=== PATIENT | male | born 1970 | race American Indian/Alaskan Native ===

== ENCOUNTER 2019-10-17 19:28 | Inpatient (IN) | payer OTHER ==
--- NOTE | 2019-10-17 21:04 | Event Note ---
ED Screening Note Date of service: 10/17/19 Time: 21:00 ED Screening Note: This is a 49 y.o. M. that presents to the ER with LLQ pain for 2 weeks. Reports vomiting once. PMH of DM2, HTN, and neuropathy States ran out of medication 3 months ago and requesting refills. This initial assessment/diagnostic orders/clinical plan/treatment(s) is/are subject to change based on patients health status, clinical progression and re- assessment by fellow clinical providers in the ED. Further treatment and workup at subsequent clinical providers discretion. Patient/guardian urged not to elope from the ED as their condition may be serious if not clinically assessed and managed. Initial orders include: Labs
[2019-10-17 21:47] LABS: Alanine Aminotransferase 27 units/L (7-56); Albumin 4.6 g/dL (3.9-5); BUN/Creatinine Ratio 11; Blood Urea Nitrogen 12 mg/dL (9-20); Calcium 9.5 mg/dL (8.4-10.2); Hemolysis Index 7
[2019-10-17 21:48] LABS: Basophils % (Auto) 0.2 % (0.0-1.8); Eosinophils # (Auto) 0.1 K/mm3 (0.0-0.4); Eosinophils % (Auto) 2.1 % (0.0-4.3); Hematocrit 40.9 % (35.5-45.6); Hemoglobin 13.4 gm/dl (11.8-15.2); Lymphocytes # (Auto) 1.2 K/mm3 (1.2-5.4); Mean Corpuscular HGB Conc 33 % (32-34); Mean Corpuscular Volume 91 fl (84-94); Monocytes # (Auto) 0.3 K/mm3 (0.0-0.8); Monocytes % (Auto) 7.1 % (0.0-7.3); Platelet Count 200 K/mm3 (140-440)
[2019-10-17 22:25] LABS: Bilirubin,Urine NEG (Negative); Blood,Urine NEG (Negative); Color,Urine Colorless (Yellow); Protein,Urine <15 mg/dL mg/dL (Negative); Urobilinogen,Urine < 2.0 mg/dL (<2.0); WBC,Urine < 1.0 /HPF (0.0-6.0)
[2019-10-17] MEDS ORDERED: INSULIN REGULAR, HUMAN 100 UNITS/1 ML IV ONE (22:30)
[2019-10-17] MEDS ORDERED: SODIUM CHLORIDE 0.9% 1000 ML 1,000 ML IV ONE (22:31)
--- NOTE | 2019-10-17 23:52 | Cat Scan Report ---
CT of the abdomen and pelvis without contrast INDICATION: Left lower quadrant pain COMPARISON: None FINDINGS: Lung bases are clear. The liver, spleen, adrenal glands and kidneys show no abnormalities. No definite gallbladder or biliary tree abnormality. No fluid or adenopathy in the upper abdomen. The re is a 2.4 cm partially calcified mass in the tail the pancreas. CT of the pelvis shows normal appendix. No ureteral stones are seen. No stone fragments seen in the b ladder. Prostate is not significantly enlarged. There is no diverticulosis or diverticulitis. No sign ificant skeletal lesion. IMPRESSION: Partially calcified pancreatic tail mass. Otherwise negative study. Automated exposure control was utilized to diminish radiation dose. Signer Name: Mau Palmer MD Signed: 10/17/2019 11:47 PM Workstation Name: [id number]
--- NOTE | 2019-10-18 00:09 | Emergency Department Report ---
ED General Adult HPI - General Chief complaint: Abdominal Pain Stated complaint: OUT OF MEDS Time Seen by Provider: 10/17/19 20:59 Source: patient Mode of arrival: Ambulatory Limitations: No Limitations - History of Present Illness Initial comments: Patient reports non-compliant with DM medications for past 3 months. Reports left lower quadrant abdominal pain for past 2 weeks intermittent. - Related Data Allergies Allergy/AdvReac Type Severity Reaction Status Date / Time No Known Allergies Allergy Verified 10/17/19 19:41 ED Review of Systems ROS: Stated complaint: OUT OF MEDS Other details as noted in HPI Other: GENERAL: No weight change, fatigue, fever, chills, or night sweats SKIN: No changes in skin or hair, no itching, no rashes, no jaundice HEAD: No trauma EYES: No blurriness, tearing, itching, acute visual loss, conjunctival discoloration, or scleral icterus EARS: No hearing loss, tinnitus, vertigo, or earache NOSE: No rhinorrhea, stuffiness, sneezing, itching, or epistaxis MOUTH: No bleeding gums, hoarseness, sore throat, or swelling CARDIAC: No new murmur, chest pain, palpitations, dyspnea on exertion, orthop zachery, PND, or edema RESPIRATORY: No shortness of breath, wheeze, cough, sputum production, hemoptysis GI: Abdominal pain. No nausea, vomiting, dysphagia, diarrhea, constipation, hematemesis, melena, hematochezia URINARY: No frequency, urgency, polyuria, dysuria, hematuria, or incontinence MUSCULOSKELETAL: No muscle weakness, joint stiffness, decrease in range of motion, redness, swelling NEUROLOGIC: No headache, syncope, loss of sensation, numbness, tingling, tremors, weakness, paralysis, seizures HEMATOLOGIC: No anemia, easy bruising, bleeding, petechiae, or purpura ENDOCRINE: Polyuria, polydipsia or, polyphagia. No hot or cold intolerance, sweating, no thyroid problems PSYCHIATRIC: No change in mood, no anxiety, no depression ED Past Medical Hx - Past Medical History Previous Medical History?: Yes Hx Hypertension: Yes Hx Diabetes: Yes Additional medical history: Neuropathy - Surgical History Past Surgical History?: Yes Additional Surgical History: C6-C7 hardware - Social History Smoking Status: Never Smoker Substance Use Type: None ED Physical Exam - General Limitations: No Limitations - Other Other exam information: GENERAL: Patient in no acute distress HEAD: Normocephalic, atraumatic EYES: PERRLA, EOM intact, no scleral icterus, no conjunctival hemorrhage, visual patton and acuity wnl NOSE: No tenderness, discharge, sinus tenderness MOUTH: Dry mucous membranes. No erythema, bleeding, exudate HEART: Regular rate and rhythm, no murmur, S1-S2 are auscultated, no edema, pulses are symmetric LUNGS: No respiratory distress. Bilateral breath sounds, No tachypnea, No retractions, No wheezing, rales, rhonchi ABDOMEN: Normal bowel sounds, abdomen soft, no tenderness, no rebound, no guarding, no distention, no masses, no CVA tenderness MUSCULOSKELETAL: Normal joint range of motion, no redness, no swelling, no tenderness NEUROLOGIC: GCS 15, Alert and Oriented x3, Cranial nerves intact, normal sen sation, normal strength, no cerebellar deficit, NIHSS 0 SKIN: Skin is warm and dry, no wounds, no rashes ED Course Vital Signs 10/17/19 10/17/19 10/17/19 20:21 22:31 22:33 Temperature 97.2 F L Pulse Rate 99 H 74 Respiratory 20 19 18 Rate Blood Pressure 142/92 129/98 O2 Sat by Pulse 96 100 100 Oximetry ED Medical Decision Making - Lab Data Result diagrams: 10/17/19 21:15 10/17/19 21:15 Laboratory Results - last 24 hr 10/17/19 10/17/19 10/17/19 21:15 21:15 22:06 WBC 3.8 L RBC 4.50 Hgb 13.4 Hct 40.9 MCV 91 MCH 30 MCHC 33 RDW 13.0 L Plt Count 200 Lymph % (Auto) 33.0 [place] % (Auto) 7.1 Eos % (Auto) 2.1 Baso % (Auto) 0.2 Lymph # 1.2 [place] # 0.3 Eos # 0.1 Baso # 0.0 Seg Neutrophils % 57.6 Seg Neutrophils # 2.2 Sodium 124 L Potassium 4.5 Chloride 87.8 L Carbon Dioxide 23 Anion Gap 18 BUN 12 Creatinine 1.1 Estimated GFR > 60 BUN/Creatinine Ratio 11 Glucose 894 H* POC Glucose Calcium 9.5 Total Bilirubin 0.60 AST 21 ALT 27 Alkaline Phosphatase 109 Total Protein 7.3 Albumin 4.6 Albumin/Globulin Ratio 1.7 Lipase 31 Urine Color Colorless Urine Turbidity Clear Urine pH 7.0 Ur Specific [place] 1.027 Urine Protein <15 mg/dl Urine Glucose (UA) >=500 Urine Ketones Tr Urine Blood Neg Urine Nitrite Neg Urine Bilirubin Neg Urine Urobilinogen < 2.0 Ur Leukocyte Esterase Neg Urine WBC (Auto) < 1.0 Urine RBC (Auto) 1.0 10/18/19 00:18 WBC RBC Hgb Hct MCV MCH MCHC RDW Plt Count Lymph % (Auto) [place] % (Auto) Eos % (Auto) Baso % (Auto) Lymph # [place] # Eos # Baso # Seg Neutrophils % Seg Neutrophils # Sodium Potassium Chloride Carbon Dioxide Anion Gap BUN Creatinine Estimated GFR BUN/Creatinine Ratio Glucose POC Glucose 218 H Calcium Total Bilirubin AST ALT Alkaline Phosphatase Total Protein Albumin Albumin/Globulin Ratio Lipase Urine Color Urine Turbidity Urine pH Ur Specific [place] Urine Protein Urine Glucose (UA) Urine Ketones Urine Blood Urine Nitrite Urine Bilirubin Urine Urobilinogen Ur Leukocyte Esterase Urine WBC (Auto) Urine RBC (Auto) - Medical Decision Making Patient comfortable. Updated with results. Plan admit for further evaluation. Hospitalist updated and accepts admission. Critical care attestation.: If time is entered above; I have spent that time in minutes in the direct care of this critically ill patient, excluding procedure time. ED Disposition Clinical Impression: Hyperglycemic hyperosmolar nonketotic coma, Noncompliance with medication regimen, Hyponatremia Disposition: OP ADMIT IP TO THIS HOSP Is pt being admited?: Yes Condition: Stable Instructions: Diabetes Mellitus Type 2 in Adults (ED) Referrals: USMAN MAYEN MD [Primary Care Provider] - 3-5 Days Time of Disposition: 00:08
[2019-10-18] MEDS ORDERED: DEXTROSE 50% IN WATER (25GM) 50 ML SYRINGE IV PRN ×2 (00:52→12:42)
[2019-10-18] MEDS ORDERED: POTASSIUM CHLORIDE 10 MEQ 10 MEQ/100 ML BAG IV PRN ×2 (01:00)
[2019-10-18] MEDS ORDERED: D5W/0.45% NACL/KCL 20 MEQ 20 MEQ/1,000 ML BAG IV SCH (01:00)
[2019-10-18] MEDS ORDERED: INSULIN REGULAR, HUMAN 100 UNITS in SODIUM CHLORIDE 0.9% 99 ML IV SCH (01:00)
[2019-10-18 02:08] LABS: BUN/Creatinine Ratio 11; Blood Urea Nitrogen 10 mg/dL (9-20); Calcium 9.6 mg/dL (8.4-10.2); Hemolysis Index 17
[2019-10-18] MEDS: SODIUM CHLORIDE 0.9% 1000 ML 1,000 ML IV SCH ×2 (02:59→10:12)
--- NOTE | 2019-10-18 03:15 | History and Physical Report ---
History of Present Illness Date of examination: 10/18/19 Date of admission: 10/18/19 Chief complaint: Lower abdominal pain History of present illness: 49-year-old -Maur[place] male with known history of hypertension and diabetes mellitus presenting to the emergency room today complaining of left lower quadrant abdominal pain for the past few weeks. He denies any fever and no chills, no chest pain or shortness of breath, no hematuria or dysuria. Upon evaluation in the emergency room CT of the abdomen and pelvis did not show any significant findings. However patient was found to be hyperglycemic with blood sugar in the 800s. Patient admits that he has knots been quite compliant with his medications for the past few months as he could not get a refill. He was given IV fluid and also subcutaneous insulin in the emergency room. Past History Past Medical History: diabetes, hypertension Past Surgical History: Other (Titanium helder ON C6 AND C7) Social history: alcohol abuse (Drinks beer almost on a daily basis) Family history: diabetes, hypertension Medications and Allergies Allergies Allergy/AdvReac Type Severity Reaction Status Date / Time No Known Allergies Allergy Verified 10/17/19 19:41 Active Meds: Active Medications Dextrose (D50w (25gm) Syringe) 0 ml IV Q30MIN PRN; Protocol PRN Reason: Hypoglycemia Insulin Human Regular 100 (units/ Sodium Chloride) 100 mls @ 1 mls/hr IV TITR KENNETH; Protocol Last Admin: 10/18/19 02:57 Dose: 4 units/hr, 4 mls/hr Documented by: Potassium Chloride/Dextrose/Sod Cl (D5w/0.45% Nacl/Kcl 20 Meq) 20 meq in 1,000 mls @ 125 mls/hr IV DIRECT KENNETH Sodium Chloride (Nacl 0.9% 1000 Ml) 1,000 mls @ 150 mls/hr IV DIRECT KENNETH Last Admin: 10/18/19 02:59 Dose: 150 mls/hr Documented by: Potassium Chloride (Kcl 10meq/100ml) 10 meq in 100 mls @ 100 mls/hr IV Q1H PRN PRN Reason: SEE INSULIN DRIP PARAMETERS Potassium Chloride (Kcl 10meq/100ml) 10 meq in 100 mls @ 100 mls/hr IV Q1H PRN PRN Reason: SEE INSULIN DRIP PARAMETERS Sodium Chloride (Sodium Chloride Flush Syringe 10 Ml) 10 ml IV BID KENNETH Sodium Chloride (Sodium Chloride Flush Syringe 10 Ml) 10 ml IV PRN PRN PRN Reason: LINE FLUSH Review of Systems Gastrointestinal: abdominal pain (Lower abdominal pain), other Exam - Constitutional Vitals: Temp Pulse Resp BP Pulse Ox 97.2 F L 81 11 L 127/86 100 10/17/19 20:21 10/18/19 03:00 10/18/19 03:00 10/18/19 03:00 10/17/19 22:33 General appearance: Present: no acute distress, well-nourished - EENT Eyes: Present: PERRL, EOM intact ENT: hearing intact, clear oral mucosa, dentition normal - Neck Neck: Present: supple, normal ROM - Respiratory Respiratory effort: normal Respiratory: bilateral: CTA - Cardiovascular Rhythm: regular Heart Sounds: Present: S1 & S2 - Extremities Extremities: pulses symmetrical, No edema, Full ROM Peripheral Pulses: within normal limits - Abdominal General gastrointestinal: Present: soft, non-tender, non-distended, normal bowel sounds - Integumentary Integumentary: Present: clear, warm, dry - Musculoskeletal Musculoskeletal: strength equal bilaterally - Psychiatric Psychiatric: appropriate mood/affect, intact judgment & insight, cooperative - Neurologic Neurologic: CNII-XII intact, moves all extremities Results - Labs CBC & Chem 7: 10/17/19 21:15 10/18/19 03:36 Labs: Abnormal lab results 10/17/19 10/17/19 10/18/19 Range/Units 21:15 21:15 00:18 WBC 3.8 L (4.5-11.0) K/mm3 RDW 13.0 L (13.2-15.2) % Sodium 124 L (137-145) mmol/L Chloride 87.8 L (98-107) mmol/L Glucose 894 H* (75-100) mg/dL POC Glucose 218 H (70-105) Hemoglobin A1c (4-6) % 10/18/19 10/18/19 Range/Units 01:11 01:11 WBC (4.5-11.0) K/mm3 RDW (13.2-15.2) % Sodium (137-145) mmol/L Chloride (98-107) mmol/L Glucose 166 H (75-100) mg/dL POC Glucose (70-105) Hemoglobin A1c 14.1 H (4-6) % Assessment and Plan - Patient Problems (1) Hyperglycemic hyperosmolar nonketotic coma Current Visit: Yes Status: Acute Plan to address problem: Patient has been placed on insulin drip and also on IV fluid. We will monitor Accu-Cheks closely. Compliance with medication has been encouraged. Patient will also benefit from diabetic education prior to discharge. He has hemoglobin A1c of 14.1 (2) Hyponatremia Current Visit: Yes Status: Acute Plan to address problem: Probably secondary to the hyperglycemia. Will monitor chemistry. (3) Noncompliance with medication regimen Current Visit: Yes Status: Acute Plan to address problem: Compliance encouraged. (4) DVT prophylaxis Current Visit: Yes Status: Acute Plan to address problem: Patient is placed on sequential compression device. (5) Full code status Current Visit: Yes Status: Acute
[2019-10-18 04:24] LABS: BUN/Creatinine Ratio 12; Blood Urea Nitrogen 11 mg/dL (9-20); Calcium 9.4 mg/dL (8.4-10.2); Hemolysis Index 27
[2019-10-18] MEDS ORDERED: INSULIN REGULAR, HUMAN 100 UNITS/1 ML SUB-Q ONE (13:00)
--- NOTE | 2019-10-18 13:13 | Event Note ---
Date: 10/18/19 Patient seen and examined clinically improving normally follows at [facility] but has been out of his medication for a few days has not been fully compliant due to cost of Levemir. Agreeable to try Novolin 70/30 considering cheaper cost. Will give additional 2 L bolus of fluid as blood sugar crept back up to >400. Anticipate discharge in a.m.
[2019-10-18] MEDS: GABAPENTIN 100 MG CAP PO SCH ×2 (13:35→21:40)
[2019-10-18] MEDS ORDERED: SODIUM CHLORIDE 0.9% 1000 ML 2,000 ML IV ONE (13:44)
[2019-10-18] MEDS: INSULIN LISPRO 100 UNIT/ML SUB-Q SCH ×2 (18:06→21:38)
[2019-10-18] MEDS: INSULIN NPH/REGULAR 70/30 INJ SUB-Q SCH (18:06)
[2019-10-18] MEDS ORDERED: INSULIN GLARGINE 100 UNITS/ML SUB-Q SCH (22:00)
[2019-10-19] MEDS: SODIUM CHLORIDE 0.9% 1000 ML 1,000 ML IV SCH ×2 (00:50→08:27)
[2019-10-19] MEDS: GABAPENTIN 100 MG CAP PO SCH (05:20)
[2019-10-19 08:08] LABS: Partial Thromboplastin Time 27.6 Sec. (24.2-36.6)
[2019-10-19 08:16] LABS: BUN/Creatinine Ratio 15; Blood Urea Nitrogen 12 mg/dL (9-20); Calcium 8.6 mg/dL (8.4-10.2); Hemolysis Index 25
[2019-10-19] MEDS: INSULIN LISPRO 100 UNIT/ML SUB-Q SCH ×2 (08:27→12:08)
[2019-10-19] MEDS: INSULIN NPH/REGULAR 70/30 INJ SUB-Q SCH (08:28)
[2019-10-19] MEDS ORDERED: NON-FORMULARY EACH (Rosuvastatin Calcium [Crestor] 20 MG) PO SCH (10:00)
[2019-10-19] MEDS ORDERED: LISINOPRIL 20 MG TAB PO SCH (10:00)
[2019-10-19 10:21] VITALS: BP 125/95
--- NOTE | 2019-10-19 11:33 | Discharge Summary ---
Providers - Providers Date of Admission: 10/18/19 07:15 Attending physician: HENRIK DAVIS MD [facility] care physician: [facility] Hospital[facility] Reason for admission: Diabetes mellitus uncontrolled Condition: Stable Hospital course: 49-year-old -L[place] male with known history of hypertension and diabetes mellitus presenting to the emergency room today complaining of left lower quadrant abdominal pain for the past few weeks. He denies any fever and no chills, no chest pain or shortness of breath, no hematuria or dysuria. Upon evaluation in the emergency room CT of the abdomen and pelvis did not show any significant findings. However patient was found to be hyperglycemic with blood sugar in the 800s. Patient admits that he has knots been quite compliant with his medications for the past few months as he could not get a refill. He was given IV fluid and also subcutaneous insulin in the emergency room. Patient was treated with IV fluids and insulin therapy after extensive discussion with the patient as noted above he could not feel his insulin and had run out. I discussed with him about conversion to Novolin 70/30 for which she is agreeable this was tested out. He did well on it I discussed that even though we will be writing for 36 units twice daily that I would like him to start at a lower dose and then monitor his blood sugar his target goal at this point is to keep his blood sugar below 200 and if he notices that it is higher than 200 he will gradually increase the dose that he takes also recommended that he follows with the [facility] at this point. He verbalized understanding. (1) Hyperglycemic hyperosmolar nonketotic coma (2) Hyponatremia (3) Noncompliance with medication regimen (4) hypertension Disposition: DC-01 TO HOME OR SELFCARE Time spent for discharge: 35 mins Core Measure Documentation - Palliative Care Palliative Care/ Comfort Measures: Not Applicable - Core Measures Any of the following diagnoses?: none Exam - Physical Exam Narrative exam: VITAL SIGNS: Reviewed. GENERAL: The patient appears normally developed, Vital signs as documented. HEAD: No signs of head trauma. EYES: Pupils are equal. Extraocular motions intact. EARS: Hearing grossly intact. MOUTH: Oropharynx is normal. NECK: No adenopathy, no JVD. CHEST: Chest with clear breath sounds bilaterally. No wheezes, rales, or rhonchi. CARDIAC: Regular rate and rhythm. S1 and S2, without murmurs, gallops, or rubs. VASCULAR: No Edema. Peripheral pulses normal and equal in all extremities. ABDOMEN: Soft, non tender and non distended. No rebound or guarding, and no masses palpated. Bowel Sounds normal. MUSCULOSKELETAL: Good range of motion of all major joints. Extremities without clubbing, cyanosis or edema. NEUROLOGIC EXAM: Alert and oriented x 3 No focal sensory or strength deficits. Speech normal. Follows commands. PSYCHIATRIC: Mood normal. SKIN: detial exam as documented in skin assessment - Constitutional Vitals: Temp Pulse Resp BP Pulse Ox 97.7 F 74 18 125/95 98 10/19/19 08:01 10/19/19 10:21 10/19/19 08:01 10/19/19 10:21 10/19/19 08:01 Plan Activity: advance as tolerated, fall precautions Diet: low salt, diabetic Special Instructions: record daily weights, record daily BP diary, record blood sugar diary Follow up with: TYSON ROBLESGOODMAN MD DL [Primary Care Provider] - 3-5 Days Prescriptions: Rosuvastatin Calcium [Crestor] 20 mg PO DAILY #30 tablet Gabapentin 100 mg PO Q8HR #30 cap Insulin NPH/Regular [NovoLIN 70/30] 36 unit SUB-Q BIDDIAB #100 units Lisinopril [Zestril TAB] 20 mg PO QDAY #30 tablet Other Discharge Orders: Glucometer (Amb) Location: None Selected Glucometer supplies[Amb] Location: None Selected
[2019-10-19 11:51] LABS: Basophils % (Auto) 0.2 % (0.0-1.8); Eosinophils # (Auto) 0.1 K/mm3 (0.0-0.4); Eosinophils % (Auto) 3.9 % (0.0-4.3); Hematocrit 36.8 % (35.5-45.6); Hemoglobin 12.5 gm/dl (11.8-15.2); Lymphocytes # (Auto) 1.7 K/mm3 (1.2-5.4); Lymphocytes % (Auto) 45.2 % (13.4-35.0); Mean Corpuscular HGB Conc 34 % (32-34); Mean Corpuscular Volume 89 fl (84-94); Monocytes # (Auto) 0.2 K/mm3 (0.0-0.8); Monocytes % (Auto) 5.4 % (0.0-7.3); Platelet Count 189 K/mm3 (140-440); Red Blood Count 4.12 M/mm3 (3.65-5.03); Red Cell Distribution Width 13.1 % (13.2-15.2)
[2019-10-19] MEDS ORDERED: FLU VACC QUAD 2019-20 (3 YR UP)/PF 60 MCG/0.5 ML SYRINGE IM ONE (12:00)
== END 2019-10-19 13:21 | disposition home or self-care (01) | DRG 638 ==
LOC: ED 19:28 → 4A 10-18 07:15
PROVIDERS: ADMIT Internal Medicine Geriatric Medicine; ATTEND Internal Medicine
DX: E11.00 Type 2 diabetes mellitus with hyperosmolarity without nonketotic hyperglycemic-hyperosmolar coma (NKHHC) (principal); E87.1 Hypo-osmolality and hyponatremia; F10.10 Alcohol abuse, uncomplicated; Y90.9 Presence of alcohol in blood, level not specified; E11.40 Type 2 diabetes mellitus with diabetic neuropathy, unspecified; I10 Essential (primary) hypertension; Z91.19 Patient's noncompliance with other medical treatment and regimen; Z91.14 Patient's other noncompliance with medication regimen; Z82.49 Family history of ischemic heart disease and other diseases of the circulatory system; Z83.3 Family history of diabetes mellitus; Z79.84 Long term (current) use of oral hypoglycemic drugs
CPT/HCPCS: 36415; 74176; 80048; 80053; 81001; 82962; 83036; 83690; 83735; 84100; 85025; 85610; 85730; 90686; G0378; A9270-GY; J1815; J7030